=== PATIENT | female | born 1960 | race Caucasian/White ===

== ENCOUNTER → 2017-10-14 | Outpatient (CLI) | payer OTHER ==
[2017-10-15 13:06] LABS: Zinc, Serum 88 ug/dL (60-130)
== END | disposition home or self-care (01) ==
LOC: LABWHC1 10:47
PROVIDERS: ATTEND Internal Medicine Medical Oncology
DX: D50.9 Iron deficiency anemia, unspecified (principal)
CPT/HCPCS: 36415; 82525; 82607; 82728; 84630

== ENCOUNTER → 2017-10-21 | Outpatient (CLI) | payer OTHER ==
--- NOTE | 2017-10-22 07:55 | US ---
EXAMINATION TYPE: US thyroid st tissue head/neck DATE OF EXAM: 10/21/2017 COMPARISON: NONE CLINICAL HISTORY: E03.9 Hypothyroidism. hypothyroidism GLAND SIZE: Right Lobe: 3.0 x 1.0 x 1.1 cm Overall Parenchyma: heterogenous Left Lobe: 3.1 x 0.8 x 0.9 cm Overall Parenchyma: heterogeneous Isthmus Thickness: 0.2 cm NODULES RIGHT: # of nodules measured on right: 0 LEFT: # of nodules measured on left: 0 ISTHMUS: # of nodules measured in the isthmus: 0 Bilateral neck scanned, no evidence of lymphadenopathy. Small, heterogeneous thyroid gland IMPRESSION: Nonspecific glandular heterogeneity without distinct solid or cystic nodule.
== END | disposition home or self-care (01) ==
LOC: RADUSWWP 16:33
PROVIDERS: ATTEND Family Medicine
DX: R93.8 Abnormal findings on diagnostic imaging of other specified body structures (principal); E03.9 Hypothyroidism, unspecified
CPT/HCPCS: 76536

== ENCOUNTER → 2018-06-22 | Outpatient (CLI) | payer OTHER ==
[2018-06-22 09:02] LABS: Basophils % (A) 1 %; Eosinophils # (A) 0.1 k/uL (0-0.7); Eosinophils % (A) 3 %; HCT 45.3 % (34.0-46.0); HGB 14.2 gm/dL (11.4-16.0); Lymphocytes # (A) 1.6 k/uL (1.0-4.8); Lymphocytes % (A) 38 %; MCH 28.9 pg (25.0-35.0); MCHC 31.3 g/dL (31.0-37.0); MCV 92.5 fL (80.0-100.0); Monocytes # (A) 0.3 k/uL (0-1.0); Monocytes % (A) 7 %; Neutrophils # (A) 2.1 k/uL (1.3-7.7); Neutrophils % (A) 49 %; Platelet Count 327 k/uL (150-450); RDW 13.7 % (11.5-15.5); WBC 4.3 k/uL (3.8-10.6)
[2018-06-22 09:23] LABS: Albumin 4.2 g/dL (3.5-5.0); Bilirubin, Delta 0.1 mg/dL (0.0-0.2); Bilirubin,Unconjugated 0.5 mg/dL (0.0-1.1); Total Bilirubin 0.6 mg/dL (0.2-1.3); Total Protein 6.9 g/dL (6.3-8.2)
[2018-06-22 09:32] LABS: T4, Free (Free Thyroxine) 1.62 ng/dL (0.78-2.19)
[2018-06-22 15:55] LABS: Protein, Total 6.2 g/dL (6.2-8.2)
--- NOTE | 2018-06-23 03:54 | US ---
EXAMINATION TYPE: US thyroid st tissue head/neck DATE OF EXAM: 06/22/2018 COMPARISON: 10/21/2017 CLINICAL HISTORY: 58-year-old female E04.1 Thyroid Nodule; patient states has midline upper neck palp able superior to thyroid gland and noted x 3 weeks; takes Levothyroxine TECHNIQUE: Multiple sonographic images of the thyroid gland are obtained. FINDINGS: GLAND SIZE: Right Lobe: 2.6 x 1.0 x 0.9 cm Overall Parenchyma: heterogenous Left Lobe: 3.1 x 0.8 x 0.8 cm Overall Parenchyma: heterogeneous Isthmus Thickness: 0.1 cm NODULES RIGHT: # of nodules measured on right: 1 1. 0.8 X 0.6 x 0.4 cm hypoechoic cystic nodule at the upper pole with irregular margins. This nodu le is wider than tall and shows no intranodular vascularity. Prior size: none previously measured LEFT: # of nodules measured on left: 0 ISTHMUS: # of nodules measured in the isthmus: 0 [employer] notes: Bilateral neck scanned: no evidence of lymphadenopathy. At patient 's c/o palpabl e midline upper neck is hypoechoic area, mildly cystic by ultrasound and size = 1.0 x 1.0 x 0.4cm IMPRESSION: 1. At the patient's palpable site superior to the thyroid isthmus is a 1.0 x 1.0 x 0.4 cm nonspecific cyst. This may represent a thyroglossal duct cyst. It can be monitored clinically. If there are any worrisome clinical features or any enlargement is noted, contrast enhanced CT can be considered. 2. Very small heterogeneous thyroid gland suggesting chronic hypothyroidism. There is a single 8 mm n odule in the right that is probably cystic.
[2018-06-23 10:11] LABS: Albumin 3.74 g/dL (3.80-4.90); Gamma Globulin 0.87 g/dL (0.70-1.50)
== END | disposition home or self-care (01) ==
LOC: RADUSWWP 07:50
PROVIDERS: ATTEND Family Medicine
DX: E04.1 Nontoxic single thyroid nodule (principal); E88.09 Other disorders of plasma-protein metabolism, not elsewhere classified
CPT/HCPCS: 36415; 76536; 80061; 80076; 84165; 84439; 84443; 85025

== ENCOUNTER → 2018-07-01 | Outpatient (CLI) | payer OTHER | END | disposition home or self-care (01) | LOC: LABWHC1 07:01 | DX: M79.673 Pain in unspecified foot (principal) | CPT/HCPCS: 36415; 85652; 86140 ==

== ENCOUNTER → 2018-07-21 | Outpatient (CLI) | payer OTHER ==
--- NOTE | 2018-07-22 19:26 | BD ---
EXAMINATION TYPE: Axial Bone Density DATE OF EXAM: 07/21/2018 COMPARISON: NONE CLINICAL HISTORY: 58-year-old female screening for postmenopausal osteoporosis Height: 60 IN Weight: 144 LBS FRAX RISK QUESTIONS: Secondary Osteoporosis: 3. Menopause before 45: ABLATION AGE 33 RISK FACTORS HISTORY OF: Family History of Osteoporosis: YES MOTHER Active: MINIMAL Postmenopausal woman: ABLATION AGE 33 Take estrogen and/or progesterone medications: YES How long: SINCE AGE 54 MEDICATIONS: Thyroid Medications: YES Which medication: Levothyroxine How Lon+ YEARS Additional Medications: CALCIUM, VIT D, LEVOTHYROXINE, ESTRACE, EXAM MEASUREMENTS: Bone mineral densitometry was performed using the [employer]. LUMBAR SPINE NOT DONE. PT HAD BARIATRIC SURGERY AMD THERE ARE SARITA OVER ALL THE LUMBAR. Bone mineral density about the R hip (g/cm2): 0.780 Bone mineral density about the L hip (g/cm2): 0.847 T Score values are as follows: -----R Neck: -1.9 -----L Neck: -1.4 -----R Total: -2.2 -----L Total: -2.0 Bone mineral density BASELINE Bone mineral density about the L Wrist (g/cm2): 0.519 T Score values are as follows: -----Dist. R+U: -3.3 -----Prox. R+U: -1.8 -----Radius total: -2.6 Bone mineral density BASELINE IMPRESSION: Osteopenia (T Score between -2.5 and -1). However, note that measurements are bordering on osteoporos is at the left wrist. There is slightly increased risk of fracture and the patient may be considered for treatment. Re-Screen 2-5 years. NOTE: T-SCORE=SD OF THE YOUNG ADULT MEAN.
--- NOTE | 2018-07-23 08:25 | MM ---
Reason for exam: screening (asymptomatic). Last mammogram was performed 2 years and 4 months ago. History: Patient is postmenopausal. Family history of breast cancer in paternal aunt. Reductions of both breasts, 1991. Took estrogen for 3 years. Physical Findings: A clinical breast exam by your physician is recommended on an annual basis and results should be correlated with mammographic findings. MG Screening Mammo w CAD Bilateral CC and MLO view(s) were taken. Prior study comparison: March 19, 2016, mammogram. September 27, 2014, mammogram. There are scattered fibroglandular densities. Post mammoplasty changes. No significant changes when compared with prior studies. ASSESSMENT: Negative, BI-RAD 1 RECOMMENDATION: Routine screening mammogram of both breasts in 1 year.
== END | disposition home or self-care (01) ==
LOC: RADMAMWWP 15:01
PROVIDERS: ATTEND Family Medicine
DX: Z12.31 Encounter for screening mammogram for malignant neoplasm of breast (principal); M85.851 Other specified disorders of bone density and structure, right thigh; M85.852 Other specified disorders of bone density and structure, left thigh; M85.832 Other specified disorders of bone density and structure, left forearm; Z78.0 Asymptomatic menopausal state
CPT/HCPCS: 77067; 77080

== ENCOUNTER → 2018-11-19 | Outpatient (CLI) | payer OTHER ==
[2018-11-19 11:58] LABS: Basophils % (A) 1 %; Eosinophils # (A) 0.1 k/uL (0-0.7); Eosinophils % (A) 2 %; HCT 44.1 % (34.0-46.0); HGB 14.1 gm/dL (11.4-16.0); Lymphocytes # (A) 1.9 k/uL (1.0-4.8); Lymphocytes % (A) 26 %; MCH 29.3 pg (25.0-35.0); MCHC 31.9 g/dL (31.0-37.0); Mean Platelet Volume 6.9; Monocytes # (A) 0.3 k/uL (0-1.0); Monocytes % (A) 4 %; Neutrophils # (A) 4.9 k/uL (1.3-7.7); Neutrophils % (A) 67 %; Platelet Count 336 k/uL (150-450); RBC 4.79 m/uL (3.80-5.40); RDW 14.5 % (11.5-15.5); WBC 7.3 k/uL (3.8-10.6)
[2018-11-19 17:17] LABS: African American GFR (CKD) 115.6 (60.0-200.0); Albumin 4.4 g/dL (3.80-4.90); Albumin/Globulin Ratio 2.2 (1.60-3.17); Anion Gap 9.1 mmol/L (4.00-12.00); BUN/Creat Ratio 21.67 Ratio (12.00-20.00); Calcium 9.7 mg/dL (8.7-10.3); Carbon Dioxide 24.9 mmol/L (21.6-31.8); Non-African American GFR(CKD) 99.8 (60.0-200.0); Potassium 4.4 mmol/L (3.5-5.5); Total Bilirubin 0.3 mg/dL (0.3-1.2); Total Protein 6.4 g/dL (6.2-8.2)
[2018-11-19 17:25] LABS: T4, Free (Free Thyroxine) 1.5 ng/dL (0.80-1.80)
== END | disposition home or self-care (01) ==
LOC: LABWHC1 10:52
PROVIDERS: ATTEND Internal Medicine
DX: D50.8 Other iron deficiency anemias (principal); E03.9 Hypothyroidism, unspecified
CPT/HCPCS: 36415; 80053; 82728; 84439; 84443; 84481; 85025

== ENCOUNTER → 2019-03-11 | Outpatient (CLI) | payer OTHER ==
--- NOTE | 2019-03-14 13:19 | MR ---
MR right foot without contrast HISTORY: Osteomyelitis midfoot Multiplanar multisequence imaging through the right foot There are no comparison films made available for interpretation There is intermediate signal on T1, increased signal in T2-weighted sequences involving the proximal second metatarsal. Some local inflammatory changes present within the surrounding soft tissues. Some mild signal abnormality also present in the middle cuneiform, degenerative changes are present at the tarsometatarsal joints with subchondral marrow signal changes, marginal spurring, joint space loss. There is a plantar calcaneal spur present. Plantar aponeurosis is intact. Achilles tendon is intact. Flexor and extensor tendons, peroneal longus and brevis tendons are intact. Some fluid signal is pres ent about the flexor digitorum tendon suggesting tenosynovitis. IMPRESSION: Findings consistent with osteomyelitis of the proximal second metatarsal, there are osteo arthritic changes and additional findings above.
== END | disposition home or self-care (01) ==
LOC: RADMRIMAIN 07:14
PROVIDERS: ATTEND Pain Medicine Interventional Pain Medicine
DX: M19.071 Primary osteoarthritis, right ankle and foot (principal)